=== PATIENT | female | born 1970 | race African-American/Black ===

== ENCOUNTER 2019-01-07 15:14 | Inpatient (IN) | payer OTHER ==
[2019-01-07 17:13] VITALS: BMI 45.1
--- NOTE | 2019-01-07 21:40 | HP ---
CIWA Score - Admission Criteria [facility] Guidelines: Admission for Medically Managed Detox: Requires at least one of the followin. CIWA greater than 12 2. Seizures within the past 24 hours 3. Delirium tremens within the past 24 hours 4. Hallucinations within the past 24 hours 5. Acute intervention needed for co occurring medical disorder 6. Acute intervention needed for co occurring psychiatric disorder 7. Severe withdrawal that cannot be handled at a lower level of care (continued vomiting, continued diarrhea, abnormal vital signs) requiring intravenous medication and/or fluids 8. Admission ROS [facility] Chief Complaint: Seeking admission to Rehab. Allergies/Adverse Reactions: Allergies Allergy/AdvReac Type Severity Reaction Status Date / Time aspirin Allergy Unknown Verified 01/07/19 23:08 clopidogrel bisulfate Allergy Unknown Verified 01/07/19 23:08 [From Plavix] History of Present Illness: 48 years old female with a history of crack cocaine and alcohol dependence was referred from [facility] for Rehab. Patient reports that she was in the Hospital for 7 days. She has been in previous detox and reports 20 years of sobriety. She has medical history of CHF, DM Type 2, hypertension, and chronic back pain. She reports suicide attempt 10 years ago and denies suicidal ideation at this time. She reports depression and anxiety but was never diagnosed. Patient requests to see a psychologist. Exam Limitations: No Limitations - Ebola screening Have you traveled outside of the country in the last 21 days: No Have you had contact with anyone from an Ebola affected area: No Have you been sick,other than usual withdrawal symptoms: No Do you have a fever: No - Review of Systems Constitutional: No Symptoms Reported EENT: reports: No Symptoms Reported Respiratory: reports: No Symptoms reported Cardiac: reports: No Symptoms Reported GI: reports: No Symptoms Reported : reports: No Symptoms Reported Musculoskeletal: reports: No Symptoms Reported Integumentary: reports: No Symptoms Reported Neuro: reports: No Symptoms reported Endocrine: reports: No Symptoms Reported Hematology: reports: No Symptoms Reported Psychiatric: reports: Mood/Affect Appropiate, Orientated x3 Other Systems: Reviewed and Negative Patient History - Patient Medical History Hx Anemia: No Hx Asthma: No Hx Chronic Obstructive Pulmonary Disease (COPD): No Hx Cancer: No Hx Cardiac Disorders: Yes (HTN) Hx Congestive Heart Failure: Yes (Azilsartan, Furosemide, Losartan - HCTZ) Hx Hypertension: Yes (Clonidine, Losartan - HCTZ) Hx Hypercholesterolemia: Yes (Lipitor) HX Cerebrovascular Accident: No Hx Seizures: No Hx Dementia: No Hx Diabetes: Yes (Type 2 - Novolog , Metformin) Hx Gastrointestinal Disorders: Yes (GERD- Omeprazole) Hx Liver Disease: No Hx Genitourinary Disorders: No Hx Sexually Transmitted Disorders: Yes (Herpes- Valcivclovir) Hx Renal Disease (ESRD): No Hx Thyroid Disease: No Hx Human Immunodeficiency Virus (HIV): No (Negative (Patient cannot remember year)) Hx Hepatitis C: No Hx Depression: Yes Hx Suicide Attempt: Yes (10 years ago . Denies suicidal ideation at this time) Hx Bipolar Disorder: No Hx Schizophrenia: No - Patient Surgical History Past Surgical History: Yes Hx Abdominal Surgery: Yes (Larascopy aT 20) Other Surgical History: Carpel tunnel at age 38, - PPD History Previous Implant?: No (PPD POSITIVE 2003) PPD to be Administered?: No - Reproductive History Patient is a Female of Child Bearing Age (11 -55 yrs old): Yes Last Menstrual Period: 12/01/18 Patient : No - Smoking Cessation Smoking history: Current every day smoker Have you smoked in the past 12 months: Yes Aproximately how many cigarettes per day: 20 Hx Chewing Tobacco Use: No Initiated information on smoking cessation: Yes 'Breaking Loose' booklet given: 01/07/19 - Substance & Tx. History Hx Alcohol Use: Yes Hx Substance Use: No Substance Use Type: Cocaine Hx Substance Use Treatment: Yes ([facility] ) - Substances Abused Alcohol Route: Oral Frequency: Daily Amount used: Haleigh - 1/2 pint Age of first use: 9 Date of Last Use: 12/24/18 Crack Route: Smoking Frequency: Daily Amount used: $200 Age of first use: 18 Date of Last Use: 12/31/18 Family Disease History - Family Disease History Family Disease History: CA: Mother (Leukemia - ) Admission Physical Exam BHS - Vital Signs Vital Signs: Vital Signs - 24 hr 01/07/19 17:07 Temperature 98.8 F Pulse Rate 96 H Respiratory 18 Rate Blood Pressure 138/70 - Physical General Appearance: Yes: Within Normal Limits HEENTM: Yes: EOMI, Normal ENT Inspection, Normal Voice, AJIT Respiratory: Yes: Lungs Clear, Normal Breath Sounds, No Respiratory Distress Neck: Yes: Supple Breast: Yes: Breast Exam Deferred Cardiology: Yes: Tachycardia Abdominal: Yes: Normal Bowel Sounds, Soft Genitourinary: Yes: Within Normal Limits Back: Yes: Normal Inspection Musculoskeletal: Yes: Back pain Extremities: Yes: Within Normal Limits, Normal Inspection Neurological: Yes: Alert, Normal Mood/Affect Integumentary: Yes: Normal Color, Warm Lymphatic: Yes: Within Normal Limits - Diagnostic (1) CHF (congestive heart failure) Current Visit: Yes Status: Chronic Qualifiers: Heart failure type: diastolic Heart failure chronicity: acute Qualified Code(s): I50.31 - Acute diastolic (congestive) heart failure (2) DM type 2 (diabetes mellitus, type 2) Current Visit: Yes Status: Chronic Qualifiers: Diabetes mellitus vermin exterminator insulin use: unspecified vermin exterminator insulin use status Diabetes mellitus complication status: without complication Qualified Code(s): E11.9 - Type 2 diabetes mellitus without complications (3) Hypertension Current Visit: Yes Status: Chronic Qualifiers: Hypertension type: essential hypertension Qualified Code(s): I10 - Essential (primary) hypertension (4) Chronic back pain Current Visit: Yes Status: Chronic Qualifiers: Back pain location: low back pain (5) Herpes Current Visit: Yes Status: Chronic (6) GERD (gastroesophageal reflux disease) Current Visit: Yes Status: Chronic (7) Depression Current Visit: Yes Status: Chronic Qualifiers: Depression Type: unspecified Qualified Code(s): F32.9 - Major depressive disorder, single episode, unspecified (8) Anxiety Current Visit: Yes Status: Chronic Cleared for Admission [facility] - Detox or Rehab [facility] Level of Care: Observation Bed Claeared for Rehab Admission: Yes [facility] Breath Alcohol Content Breath Alcohol Content: 0 Urine Pregancy Test - Result Urine Test Results: Negative - NO line present Urine Drug Screen - Results Drug Screen Negative: No Urine Drug Screen Results: BZO-Benzodiazepines Inpatient Rehab Admission - Rehab Decision to Admit Inpatient rehab admission?: Yes - Initial Determination Are CD services needed?: No Free of communicable disease: No Not in need of hospitalization: Yes - Rehab Admission Criteria Previous failed treatment: Yes Poor recovery environment: Yes Comorbidities: Yes Lacks judgement: No Patient is meeting Inpatient Rehab admission criteria:: Yes
[2019-01-07] MEDS ORDERED: MELATONIN 5 MG TABLETS PO PRN (22:00)
[2019-01-07] MEDS ORDERED: P-EPHED 60MG/TRIPROLIDI 2.5MG TABLET PO PRN (22:37)
[2019-01-07] MEDS ORDERED: NICOTINE POLACRILEX 2 MG GUM BUC PRN (22:37)
[2019-01-07] MEDS ORDERED: LOPERAMIDE HCL 2 MG CAPSULE PO PRN (22:37)
[2019-01-07] MEDS ORDERED: MAGNESIUM HYDROX 2400MG/30ML ORAL SUSPENSION 30 ML CUP PO PRN (22:37)
[2019-01-07] MEDS ORDERED: MAG HYDROX/AL HYDROX/SIMETH 30 ML UNIT-DOSE CUP PO PRN (22:37)
[2019-01-07] MEDS ORDERED: MENTHOL/PHENOL 1 EACH UD MM PRN (22:37)
[2019-01-07] MEDS ORDERED: ACETAMINOPHEN 325 MG TABLET (FP) PO PRN (22:37)
[2019-01-07] MEDS ORDERED: MAGNESIUM CITRATE 300 ML BOTTLE PO PRN (22:37)
[2019-01-07] MEDS ORDERED: guaiFENesin 200 MG/10 ML 10 ML UNIT-DOSE CUPS PO PRN (22:37)
[2019-01-08] MEDS ORDERED: valACYclovir HCL 500 MG TABLET (FP) PO PRN (02:15)
[2019-01-08] MEDS ORDERED: PATIENT'S OWN MEDICATION (NON-FORMULARY) (Insulin Aspart [Novolog] 100 UNIT) SQ SCH (06:00)
[2019-01-08] MEDS: metFORMIN HCL 500 MG TABLET (FP) PO SCH ×2 (06:59→16:46)
[2019-01-08] MEDS: CYCLOBENZAPRINE HCL 10 MG TABLET (FP) PO SCH ×3 (07:00→21:44)
[2019-01-08] MEDS: PREGABALIN 100 MG CAPSULE PO SCH ×3 (08:00→21:44)
[2019-01-08] MEDS ORDERED: INSULIN (NOVOLOG) ASPART 100 UNITS/ML 10ML VIAL ONE ×2 (08:00→16:46)
[2019-01-08] MEDS: INSULIN SLIDING SCALE (NOVOLOG) 1 VIAL SQ SCH ×2 (08:01→16:47)
[2019-01-08] MEDS ORDERED: PT OWN MED DRAWER 7, Y5N ONE (08:47)
[2019-01-08] MEDS ORDERED: PATIENT'S OWN MEDICATION (NON-FORMULARY) (Losartan/Hydrochlorothiazide [Hyzaar 100-25 Tabl PO SCH (10:00)
[2019-01-08] MEDS ORDERED: LIRAGLUTIDE SQ SCH (10:00)
[2019-01-08] MEDS ORDERED: PATIENT'S OWN MEDICATION (NON-FORMULARY) (Naloxegol Oxalate [Movantik] 25 MG) PO SCH (10:00)
[2019-01-08] MEDS ORDERED: INSULIN DEGLUDEC SQ SCH (10:00)
[2019-01-08] MEDS ORDERED: PATIENT'S OWN MEDICATION (NON-FORMULARY) (Dapagliflozin Propanediol [Farxiga] 5 MG) PO SCH (10:00)
[2019-01-08] MEDS ORDERED: [UNRECOGNIZED DRUG - OTHER] SQ SCH (10:00)
[2019-01-08] MEDS: cloNIDine HCL 0.1 MG TABLET PO SCH ×2 (10:09→21:44)
[2019-01-08] MEDS: LOSARTAN POTASSIUM 50 MG TABLET (FP) PO SCH (10:10)
[2019-01-08] MEDS: HYDROCHLOROTHIAZIDE 25 MG TABLET (FP) PO SCH (10:10)
[2019-01-08] MEDS: PRENATAL VITAMINS W/ FOLIC ACID TABLET (FP) PO SCH (10:10)
[2019-01-08] MEDS: FUROSEMIDE 40 MG TABLET (FP) PO SCH (10:10)
[2019-01-08] MEDS: PANTOPRAZOLE 40 MG TABLET (FP) PO SCH (10:10)
[2019-01-08] MEDS: NICOTINE 14 MG/24 HOURS TOPICAL PATCH TD SCH (10:11)
[2019-01-08] MEDS: PRASUGREL HCL 5 MG TAB PO SCH (11:00)
[2019-01-08] MEDS ORDERED: PNEUMOCOCCAL 23 VACCINE 0.5 ML VIAL IM ONE (12:00)
[2019-01-08] MEDS ORDERED: PNEUMOC 13-VAL CONJ-DIP CRM/PF 0.5 ML DISP.SYRIN IM ONE (12:00)
--- NOTE | 2019-01-08 13:56 | PN ---
[facility] Progress Note Note: Client came here directly after discharge from [facility], with hospital medication list. Reviewed with pharmacist the patient's hospital medication list and checked with external pharmacy for recent prescriptions. After that, discussed medication list with patient to determine/confirm the medications the patient was taking. Client is taking several medications that are not on formulary here: Farxiga, Xulroph, Linzess. Patient believes that she has these medications at home and will contact someone to bring them here ( at that time, we will verify them with our pharmacy and dispense to the patient) . All the medications that patient has taken as home medications that are available in our pharmacy will be ordered. Azilsartan was only given to the patient during her hospitalization and is not a regular medication. Client agreed with plan, nursing staff was made aware.
[2019-01-08] MEDS: IBUPROFEN 400 MG TABLET (FP) PO PRN (14:35)
--- NOTE | 2019-01-08 21:47 | EKG ---
Test Reason : Blood Pressure : / mmHG Vent. Rate : 089 BPM Atrial Rate : 089 BPM P-R Int : 158 ms QRS Dur : 076 ms QT Int : 384 ms P-R-T Axes : 053 071 033 degrees QTc Int : 467 ms NORMAL SINUS RHYTHM BIATRIAL ENLARGEMENT ABNORMAL ECG NO PREVIOUS ECGS AVAILABLE Confirmed by MD ALEJANDRO, INDIGO ([id number]) on 01/08/2019 9:46:59 PM Referred By: Confirmed By:INDIGO ALLEN MD
[2019-01-08] MEDS ORDERED: THIAMINE HCL 100 MG TABLET (FP) PO SCH (22:00)
[2019-01-08] MEDS ORDERED: ATORVASTATIN CA 20 MG TABLET (FP) PO SCH (22:00)
[2019-01-09] MEDS: PREGABALIN 100 MG CAPSULE PO SCH ×2 (06:45→13:49)
[2019-01-09] MEDS: metFORMIN HCL 500 MG TABLET (FP) PO SCH ×2 (06:45→17:44)
[2019-01-09] MEDS: CYCLOBENZAPRINE HCL 10 MG TABLET (FP) PO SCH ×2 (06:45→13:49)
[2019-01-09] MEDS: INSULIN SLIDING SCALE (NOVOLOG) 1 VIAL SQ SCH (06:48)
[2019-01-09] MEDS ORDERED: INSULIN (NOVOLOG) ASPART 100 UNITS/ML 10ML VIAL ONE ×2 (06:48→11:35)
[2019-01-09] MEDS ORDERED: PATIENT'S OWN MEDICATION (NON-FORMULARY) (Linaclotide [Linzess] 145 MCG) PO SCH (07:00)
[2019-01-09 07:09] VITALS: PULSE 79; TEMP 98.2
[2019-01-09 09:47] VITALS: BP 151/84
[2019-01-09] MEDS: PANTOPRAZOLE 40 MG TABLET (FP) PO SCH (09:57)
[2019-01-09] MEDS: PRENATAL VITAMINS W/ FOLIC ACID TABLET (FP) PO SCH (09:57)
[2019-01-09] MEDS: NICOTINE 14 MG/24 HOURS TOPICAL PATCH TD SCH (09:57)
[2019-01-09] MEDS: cloNIDine HCL 0.1 MG TABLET PO SCH (09:57)
[2019-01-09] MEDS: FUROSEMIDE 40 MG TABLET (FP) PO SCH (09:57)
[2019-01-09] MEDS: LOSARTAN POTASSIUM 50 MG TABLET (FP) PO SCH (09:57)
[2019-01-09] MEDS: HYDROCHLOROTHIAZIDE 25 MG TABLET (FP) PO SCH (09:57)
[2019-01-09] MEDS: PRASUGREL HCL 5 MG TAB PO SCH (09:58)
--- NOTE | 2019-01-09 10:56 | PN ---
[facility] Progress Note Note: Followed up with patient about home meds. Ms. Ross states that her significant other will be bringing medications. Nurses aware.
[2019-01-09] MEDS ORDERED: INSULIN (NOVOLOG) ASPART 100 UNITS/ML 10ML VIAL SQ ONE (11:30)
[2019-01-09 12:36] LABS: HEMATOCRIT 31.7 % (32.4-45.2); HEMOGLOBIN 10.6 GM/dL (10.7-15.3); MCH 20.9 pg (25.7-33.7); MCHC 33.6 g/dl (32.0-36.0); MEAN CELL VOLUME 62.1 fl (80-96); MEAN PLT VOLUME 9.2 fl (7.5-11.1); PLATELET COUNT 382 K/MM3 (134-434); RDW 27.7 % (11.6-15.6); WHITE BLOOD COUNT 16.4 K/mm3 (4.0-10.0)
[2019-01-09 13:09] LABS: ALBUMIN 3.4 g/dl (3.4-5.0); ALK PHOS 142 U/L (45-117); ANION GAP 7 MMOL/L (8-16); BILIRUBIN,TOTAL 0.6 mg/dL (0.2-1); BLOOD UREA NITROGEN 20 mg/dL (7-18); CALCIUM 9.4 mg/dL (8.5-10.1); CHLORIDE 97 mmol/L (98-107); CO2 29 mmol/L (21-32); CREATININE 0.9 mg/dL (0.55-1.3); GLUCOSE,RANDOM 242 mg/dL (74-106); POTASSIUM 4.8 mmol/L (3.5-5.1); SGOT/AST 34 U/L (15-37); SGPT/ALT 92 U/L (13-61); SODIUM 133 mmol/L (136-145); TOT PROT 7.4 g/dl (6.4-8.2)
[2019-01-09] MEDS: IBUPROFEN 400 MG TABLET (FP) PO PRN (13:50)
[2019-01-09] MEDS ORDERED: INSULIN SLIDING SCALE (NOVOLOG) 1 VIAL SQ SCH (16:30)
--- NOTE | 2019-01-09 18:51 | PN ---
S Progress Note Note: Pt left today AMA. Pt stated that rehab is not for her- came here only 2 days. Pt does not need any prescriptions- has enough meds at home. Pt did not want any referral from the counselors.
[2019-01-09 20:11] LABS: EPI CELLS 2.8 /HPF (0-5); HYALINE CASTS 1 /hpf (0-8); PH,URINE 6.5 (5.0-8.0); URINE APPEARANCE CLEAR; URINE BACTERIA 199.7 /hpf (NEGATIVE); URINE BILIRUBIN NEGATIVE (NEGATIVE); URINE COLOR YELLOW; URINE GLUCOSE (UA) 3+ (NEGATIVE); URINE KETONE NEGATIVE (NEGATIVE); URINE LEUK ESTERASE NEGATIVE (NEGATIVE); URINE NITRITE NEGATIVE (NEGATIVE); URINE PROTEIN NEGATIVE (NEGATIVE); URINE RBC 320 /hpf (0-4); URINE WBC 2 /hpf (0-5)
== END 2019-01-09 18:33 | disposition left against medical advice (07) | DRG 894 ==
LOC: YASAS 15:14 → Y3E 23:49
PROVIDERS: ADMIT Neuromusculoskeletal Medicine & OMM; ATTEND Neuromusculoskeletal Medicine & OMM
PROC: HZ42ZZZ Group Counseling for Substance Abuse Treatment, Cognitive-Behavioral (ICD-10-PCS; principal; 2019-01-07)
DX: F10.20 Alcohol dependence, uncomplicated (principal); I50.31 Acute diastolic (congestive) heart failure; F14.20 Cocaine dependence, uncomplicated; F17.210 Nicotine dependence, cigarettes, uncomplicated; F32.9 Major depressive disorder, single episode, unspecified; F41.9 Anxiety disorder, unspecified; I10 Essential (primary) hypertension; E11.9 Type 2 diabetes mellitus without complications; M54.5 Low back pain; G89.29 Other chronic pain; K21.9 Gastro-esophageal reflux disease without esophagitis; E78.00 Pure hypercholesterolemia, unspecified; Z86.19 Personal history of other infectious and parasitic diseases; Z87.42 Personal history of other diseases of the female genital tract; Z88.8 Allergy status to other drugs, medicaments and biological substances; Z79.84 Long term (current) use of oral hypoglycemic drugs; Z79.4 Long term (current) use of insulin; Z91.5 Personal history of self-harm
CPT/HCPCS: 36415; 71046-TC-FY; 80053; 81003; 82962; 85027; 86593; 87389; 90732; 93005; 93010; G0009; J0735